=== PATIENT | female | born 1985 | race Two or more races ===

== ENCOUNTER 2020-09-08 09:21 | Outpatient (CLI) | payer OTHER | END 2020-09-08 09:29 | disposition home or self-care (01) | LOC: RX STUDY 09:21 | PROVIDERS: ATTEND Specialist | DX: N83.8 Other noninflammatory disorders of ovary, fallopian tube and broad ligament (principal) ==

== ENCOUNTER 2023-11-17 08:15 | Inpatient (IN) | payer OTHER ==
[~2023-11-17] VITALS: Ht 167.6 cm; Wt 2.7 kg
[2023-11-17] MEDS ORDERED: OBSTETRIX DHA1 EAC1 PO (09:40)
[2023-11-17] MEDS ORDERED: INJECTAFER750 MG/15 IV (09:41)
[2023-11-17 10:02] LABS: HEMOGLOBIN 12.7 g/dL (12.0-15.00); MEAN CELL VOLUME 92.5 fL (80.00-100.00); MEAN CORPUSCULAR HEMOGLOBIN 31.8 pg (27.00-32.0); MEAN CORPUSCULAR HGB CONC 34.4 g/dl (32.0-36.0); PLATELET COUNT 214 K/uL (150-450); RED BLOOD COUNT 3.99 M/uL (4.00-6.00); RED CELL DISTRIBUTION WIDTH 13.3 % (11.5-14.5)
[2023-11-17 10:03] LABS: PH,URINE 6.5 (5.0-8.0); URINE APPEARANCE Clear; URINE BILIRRUBIN Negative (NEGATIVE); URINE BLOOD Negative; URINE COLOR Yellow; URINE GLUCOSE Negative (NEGATIVE); URINE LEUKOCYTE Trace; URINE NITRATE Negative; URINE PROTEIN Negative (NEGATIVE); URINE UROBILINOGEN 0.2 E.U./dl
[2023-11-17 10:06] LABS: URINE BACTERIA 62.9 uL (0.0-1933); URINE EPITHELIAL CELLS 4.6 uL (0.0-38.8); URINE RBC 2.8 uL (0.0-20.8)
[2023-11-17 10:29] LABS: INR < 0.93; PROTHROMBIN TIME 9.5 SECONDS (9.0-11.5)
[2023-11-17 10:41] LABS: PARTIAL THROMBOPLASTIN TIME 25.6 SECONDS (22.0-34.0)
[2023-11-17 10:43] LABS: BILIRUBIN TOTAL 0.46 mg/dL (0.3-1.2); CALCIUM 9.1 mg/dL (8.5-10.1); CREATININE SERUM 0.55 mg/dL (0.55-1.02); GFR 124.37; GLOBULINA 4.2 G/DL (2.4-3.5); POTASSIUM 3.75 mEq/L (3.5-5.1); TOTAL PROTEIN 7.2 gm/dL (6.4-8.2)
[2023-11-18] MEDS ORDERED: RINGERS SOLUTION,LACTATED 1,000 ML IV SCH (21:45)
[2023-11-18] MEDS ORDERED: CEFAZOLIN SODIUM 1,000 MG VIAL IV NR (21:45)
[2023-11-18] MEDS ORDERED: KETOROLAC TROMETHAMINE 60 MG VIAL IM ONE (23:45)
[2023-11-19 04:25] LABS: ABG PH 7.271 (7.35-7.45); ABG pCO2 48.2 mmHg (35-45)
[2023-11-19 04:26] LABS: ABG PO2 27.9 mmHg (80-100); BASE EXCESS -5.4 mmol/l; BICARBONATE 21.7 mmol/l (23-25); SaO2 41.5 %; Tco2 23.2 mmol/l; o2 21 %
[2023-11-19 06:24] LABS: HEMATOCRIT 31.2 % (36.0-45.00); MEAN CELL VOLUME 92.5 fL (80.00-100.00); MEAN CORPUSCULAR HEMOGLOBIN 32.7 pg (27.00-32.0); MEAN CORPUSCULAR HGB CONC 35.4 g/dl (32.0-36.0); PLATELET COUNT 186 K/uL (150-450); RED BLOOD COUNT 3.37 M/uL (4.00-6.00); RED CELL DISTRIBUTION WIDTH 13.1 % (11.5-14.5)
[2023-11-19] MEDS ORDERED: PROMETHAZINE HCL 25 MG/ML AMPUL IV SCH (08:00)
[2023-11-19] MEDS ORDERED: OxyCODONE HCL/APAP UD (PERCOCET) PO SCH (08:00)
[2023-11-19] MEDS ORDERED: MEPERIDINE HCL/PF 50 MG/ML VIAL IV SCH (08:00)
[2023-11-19] MEDS ORDERED: SIMETHICONE 125 MG CAPSULE PO SCH (09:00)
[2023-11-19] MEDS ORDERED: DOCUSATE CALCIUM 240 MG CAPSULE PO SCH (09:00)
[2023-11-20] MEDS ORDERED: PNV,CALCIUM 72/IRON/FOLIC ACID 1 TAB TABLET PO SCH (09:00)
[2023-11-20] MEDS ORDERED: PERCOCET 5-3251 EACH PO (11:00)
[2023-11-20] MEDS ORDERED: SURFAK240 M1 PO (11:00)
[2023-11-20] MEDS ORDERED: IBUprofen 800 MG TABLET PO SCH ×2 (12:45→21:00)
[2023-11-20 14:39] LABS: HEMATOCRIT 34.7 % (36.0-45.00); HEMOGLOBIN 11.9 g/dL (12.0-15.00); MEAN CELL VOLUME 92.8 fL (80.00-100.00); MEAN CORPUSCULAR HEMOGLOBIN 31.9 pg (27.00-32.0); MEAN CORPUSCULAR HGB CONC 34.4 g/dl (32.0-36.0); PLATELET COUNT 227 K/uL (150-450); RED BLOOD COUNT 3.74 M/uL (4.00-6.00); RED CELL DISTRIBUTION WIDTH 13.2 % (11.5-14.5)
== END 2023-11-22 17:44 | disposition home or self-care (01) | DRG 788 ==
LOC: OB/GYN 08:15 → LDR 11-18 21:29 → OB/GYN 11-18 21:29
PROVIDERS: ADMIT Specialist; ATTEND Specialist
PROC: 4A1HXCZ Monitoring of Products of Conception, Cardiac Rate, External Approach (ICD-10-PCS; 2023-11-18)
PROC: 10D00Z1 Extraction of Products of Conception, Low, Open Approach (ICD-10-PCS; principal; 2023-11-18 21:00)
DX: O34.29 Maternal care due to uterine scar from other previous surgery (principal); Z3A.38 38 weeks gestation of pregnancy; Z37.0 Single live birth; Z20.822 Contact with and (suspected) exposure to COVID-19